=== PATIENT | female | born 1945 | race Caucasian/White ===

== ENCOUNTER 2017-02-22 15:05 | Inpatient (IN) ==
[2017-02-22] MEDS ORDERED: TYLENOL PO PRN (15:29)
[2017-02-22 16:46] VITALS: BMI 24.7
[2017-02-22] MEDS: LOPID PO SCH (17:01)
[2017-02-22] MEDS: NORCO 5-325 PO PRN ×2 (17:08→22:54)
[2017-02-22 17:39] LABS: BASOPHILS % (AUTO) 0.4 % (0.0-3.0); EOSINOPHILS # (AUTO) 0.1 K/ul (0.0-0.7); EOSINOPHILS % (AUTO) 1.2 % (0.0-7.0); HEMATOCRIT 27.7 % (37.0-47.0); HEMOGLOBIN 9.3 g/dl (12.0-16.0); IMMATURE GRANULOCYTE % (AUTO) 0.5 % (0.0-5.0); LYMPHOCYTES # (AUTO) 2.5 K/uL (0.60-3.4); LYMPHOCYTES % (AUTO) 22.6 (10.0-50.0); MEAN CORPUSCULAR HEMOGLOBIN 30.9 pg (27.0-31.0); MEAN CORPUSCULAR HGB CONC 33.6 (31.8-35.4); MONOCYTES # (AUTO) 0.7 K/uL (0.4-2.0); MONOCYTES % (AUTO) 6.3 (0-10); NEUTROPHILS # (AUTO) 7.6 K/ul (2.0-6.9); PLATELET COUNT 312 10^3/uL (140-440); RED BLOOD COUNT 3.01 10^6/ul (4.20-5.40); WHITE BLOOD COUNT 10.95 K/ul (4.6-10.2)
[2017-02-22 17:57] LABS: ALBUMIN 2.6 g/dL (3.4-5.0); ALBUMIN/GLOBULIN RATIO 0.6; ANION GAP 15.6; BILIRUBIN,TOTAL 0.26 mg/dL (0.00-1.20); BUN/CREATININE RATIO 30.68; CALCIUM 9.8 mg/dL (8.2-10.2); CREATININE 0.88 mg/dL (0.60-1.30); POTASSIUM 4.6 mmol/L (3.5-5.10); TOTAL PROTEIN 6.9 g/dL (5.8-8.1)
[2017-02-22] MEDS: DUONEB NEB SCH (19:45)
[2017-02-22] MEDS: COLACE PO SCH (20:50)
[2017-02-22] MEDS: LOPRESSOR PO SCH (20:50)
[2017-02-22] MEDS: NON-FORMULARY MEDICATION PO SCH ×22 (21:23)
[2017-02-22] MEDS ORDERED: KLONOPIN PO STA (21:37)
[2017-02-23 04:49] LABS: BASOPHILS # (AUTO) 0.1 K/uL (0-0.2); BASOPHILS % (AUTO) 0.6 % (0.0-3.0); EOSINOPHILS # (AUTO) 0.3 K/ul (0.0-0.7); EOSINOPHILS % (AUTO) 2.5 % (0.0-7.0); HEMATOCRIT 26.4 % (37.0-47.0); HEMOGLOBIN 8.7 g/dl (12.0-16.0); IMMATURE GRANULOCYTE % (AUTO) 1.2 % (0.0-5.0); LYMPHOCYTES # (AUTO) 2.3 K/uL (0.60-3.4); LYMPHOCYTES % (AUTO) 22.5 (10.0-50.0); MEAN CORPUSCULAR HEMOGLOBIN 30.6 pg (27.0-31.0); MONOCYTES # (AUTO) 0.9 K/uL (0.4-2.0); MONOCYTES % (AUTO) 8.7 (0-10); NEUTROPHILS # (AUTO) 6.6 K/ul (2.0-6.9); NEUTROPHILS % (AUTO) 64.5; PLATELET COUNT 307 10^3/uL (140-440); RED BLOOD COUNT 2.84 10^6/ul (4.20-5.40)
[2017-02-23 05:10] LABS: ALBUMIN 2.4 g/dL (3.4-5.0); ALBUMIN/GLOBULIN RATIO 0.62; ANION GAP 15.1; BILIRUBIN,TOTAL 0.23 mg/dL (0.00-1.20); BUN/CREATININE RATIO 31.76; CALCIUM 9.5 mg/dL (8.2-10.2); CREATININE 0.85 mg/dL (0.60-1.30); POTASSIUM 4.1 mmol/L (3.5-5.10); TOTAL PROTEIN 6.3 g/dL (5.8-8.1)
[2017-02-23] MEDS: DUONEB NEB SCH ×4 (05:27→20:44)
[2017-02-23] MEDS: LOPID PO SCH ×2 (06:28→16:53)
[2017-02-23] MEDS: SYNTHROID PO SCH (06:28)
[2017-02-23] MEDS: PROTONIX PO SCH (06:29)
[2017-02-23] MEDS ORDERED: SYNTHROID PO SCH (06:30)
[2017-02-23] MEDS: PLAVIX PO SCH (08:45)
[2017-02-23] MEDS: COLACE PO SCH ×2 (08:45→20:49)
[2017-02-23] MEDS: LOPRESSOR PO SCH ×2 (08:45→20:49)
[2017-02-23] MEDS: HYDROCHLOROTHIAZIDE PO SCH (08:46)
[2017-02-23] MEDS: DIOVAN PO SCH (08:46)
[2017-02-23] MEDS: NON-FORMULARY MEDICATION PO SCH ×44 (08:47→20:50)
[2017-02-23] MEDS ORDERED: KLONOPIN PO SCH (09:00)
[2017-02-23] MEDS ORDERED: NON-FORMULARY MEDICATION (Tiotropium Bromide [Spiriva Respimat] 4 GM) IH SCH (10:45)
--- NOTE | 2017-02-23 12:34 | US ---
EXAM: Bilateral carotid artery Doppler. History: Dizziness. Technique: Multiple sonographic images through the bilateral internal carotid arteries were obtaine d. Color duplex Doppler was used to interrogate vascular flow. Findings: The right ICA peak systolic velocity is within normal limits measuring 1.1 meters per second. The r ight ICA/cca PSV ratio is normal at 1.1. Yung scale images demonstrate mild to moderate plaque buil dup within the right internal carotid artery. The right vertebral artery is patent and demonstrates antegrade flow. The left ICA peak systolic velocity is moderately elevated measuring 1.7 meters per second. The lef t ICA/cca PSV ratio is upper limits of normal at 1.8. Yung scale images demonstrate moderate plaque buildup within the left internal carotid artery. The left vertebral artery is patent and demonstrat es antegrade flow. Impression: 1. Moderate, 50-69% hemodynamic stenosis within the left internal carotid artery. 2. No significant hemodynamic stenosis within the right internal carotid artery.
[2017-02-23] MEDS: SPIRIVA IH SCH (12:52)
[2017-02-23] MEDS: NORCO 5-325 PO PRN ×2 (12:53→23:07)
--- NOTE | 2017-02-23 13:24 | RS.PTINEVL ---
Subjective - Patient information Date of Evaluation: 02/23/17 Date of Arrival on Unit: 02/22/17 Admitted From:: Facility Transfer Usual Living Arrangement: Alone Home Environment: House, Stairs (few) (2 ) Medical History: Hypertension, COPD, Vascular Disease Surgical History: Knee Replacement (bilateral in 2011) Subjective Information/ Patient Comments:: Patient reports right foot is doing better since her procedure. 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 Right LE demonstrates slight swelling compared to the left LE. Range of Motion - ROM Right Upper Extremity AROM: WFL's Left Upper Extremity AROM: WFL's Right Lower Extremity AROM: WFL's Left Lower Extremity AROM: WFL's Muscle Strength - Muscle Strength Right Lower Extremity Strength: Mild Weakness Left Lower Extremity Strength: Mild Weakness Comments:: Demonstrates general weakness, but no functional deficits. LE strength bilateral hips and knees 4 to 4+/5. Right ankle at least 3+/4. Patient reports pain in the lower leg with MMT DF. Left ankle 4+/5. Sensation - Sensation Comments: Reports impaired sensation along right lateral/anterior thigh. Balance - Sitting Balance and Reactions Static Sitting Balance: Good Dynamic Sitting Balance: Good - Standing Balance and Reactions Static Standing Balance: Good Dynamic Standing Balance: Good (-) Functional Mobility - Bed Mobility Comments:: Patient presented sitting on side of bed. - Transfers Sit to Stand: CGA, 1 person assist, Tactile Cues Stand to Sit: CGA, 1 person assist, Verbal Cues, Tactile Cues Stand Pivot Transfers: CGA, 1 person assist, Verbal Cues, Tactile Cues - Safety Awareness Safety Awareness: Fair Ambulation - Ambulation Weight Bearing Status: FWB Assistive Device Used: Rolling Walker Distance: 150 feet Assistance needed with Ambulation: CGA, 1 person assist, Verbal Cues, Tactile Cues Ambulation Comments: Patient demonstrates good base of support. She walks with RW slightly farther than optimal distance from her.She demonstrates consistent foot clearance bilaterally. Ambulates in non-skid socks with RW with no loss of balance. Patient demonstrates slight SOA upon returning to her room. Factors Affecting Ambulation: Weakness (general), Limited Endurance Treatment time - Time with patient Total treatment time: 16 (mins) Assessment - Assessment Problem List:: Decreased level of function, Requires training/education, Decreased safety/Risk of falls, Weakness Rehab Potential: Good Further Therapy Indicated?: Yes Short Term Goals GOAL #1: Supine to sit with supvn and VC's. Goal to be met by: 02/25/17 GOAL #2: Sit to stand with supvn and VC's for safety. Goal to be met by: 02/25/17 GOAL #3: Amb. 150 feet with supervision of one with safe use of RW. 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 Goal to be met by: 03/01/17 GOAL #2: All transfers are independent with good safety. Goal to be met by: 03/01/17 GOAL #3: Pt will amb w/ RW, household distances w/ good safety, independently. Goal to be met by: 03/01/17 Plan Plan of Care: Therapeutic EX, Neuromuscular Re-Educ, Therapeutic Activity, Self- Care/Home Management Frequency of Treatment: 1-2 X day, as tolerated Duration of Treatment: 5-6 days Anticipated Discharge Destination: Home
[2017-02-23] MEDS: ULTRAM PO PRN ×2 (14:15→22:00)
[2017-02-23] MEDS ORDERED: DULCOLAX RC STA (14:16)
[2017-02-23] MEDS: NICODERM 21 MG TD SCH (14:30)
--- NOTE | 2017-02-23 15:52 | RS.OTINEVL ---
Subjective - Patient information Date of Evaluation: 02/23/17 Date of Arrival on Unit: 02/22/17 Admitted From:: Facility Transfer Usual Living Arrangement: With Others Living Arrangement Comments: Lives at home with her handicapped daughter. Home Environment: House, Stairs (few) (2 ) Medical History: Hypertension, COPD, Vascular Disease Medical History Comments:: Bilateral TKA, Femoral A. Endarterectomy, Tibialis Anterior A. Graft, Emphysema, HTN, Irregular heart beat. Surgical History: Knee Replacement (bilateral in 2011) Surgical History Comments:: B TKA, Femoral A. Endarterectomy, Tibialis Anterior A. Graft, Subjective Information/ Patient Comments:: I am walking with a walker now. I am wobbly. 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 Current Level of Function: Partially Dependent Current Equipment Used at Home: rolling walker and shower chair Pain Assessment - Pain Pain Score: 0 Interventions - Objective Patient Orientation: Person, Place, Time, Situation Current Interventions: IV's, Oxygen, Telemetry Observation: Pt is SOA with activity. Interventions - ROM Right Upper Extremity AROM: WFL's Left Upper Extremity AROM: WFL's - Strength Right Upper Extremity Strength: Mild Weakness Left Upper Extremity Strength: Mild Weakness - Sensation Right Upper Extremity Sensation: Intact/Normal Left Upper Extremity Sensation: Intact/Normal Balance - Sitting Balance Static Sitting Balance: Poor Dynamic Sitting Balance: Poor - Standing Balance Static Standing Balance: Fair Dynamic Standing Balance: Fair - Comments Balance Assessment Comments: Patient requires a RW for ambulation due to swurving. ADL Skills - Self Feeding Self Feeding: Independent - Grooming Grooming: Min Assist - Bathing Bathing UE: Independent Bathing LE: CGA - Dressing Dressing UE: Independent Dressing LE: CGA - Toilet Management Toileting Management: CGA Functional Mobility - Bed Mobility Rolling R/L: Independent Scooting: Independent Supine to Sit: Independent Sit to Supine: Independent - Transfers Sit to Stand: CGA Stand to Sit: CGA Stand Pivot Transfers: CGA Additional Treatment Performed - Additional units charged ADL: 15 - Time with patient Total treatment time: 20 Activities Patient Interests:: Watching Television Patient Education Patient Education: Education of diagnosis, Home Exercise Program, Home Safety, Education of Plan of Care Teaching Recipient: Patient Teaching Methods: Discussion Assessment Problem List:: Decreased level of function, Requires training/education, Decreased safety/Risk of falls, Weakness Rehab Potential: Good Further Therapy Indicated?: Yes Short Term Goals - Goals GOAL 1: Pt to increase standing activity to 15 minutes for sink level ADLS. Goal to be met by: 03/02/17 GOAL 2: Pt to increase activity tolerance to 20 minutes with rests PRN. Goal to be met by: 03/02/17 GOAL 3: Pt to increase BUE strength to 4/5 Goal to be met by: 03/02/17 [facility] Goals GOAL 1: Pt to increase standing activity time to 20 minutes with Rests PRN. Goal to be met by: 03/09/17 GOAL 2: Pt to increase activity time to 30 minutes with rests PRN. Goal to be met by: 03/09/17 GOAL 3: Pt to be independent with Home exercise program. Goal to be met by: 03/09/17
[2017-02-23] MEDS: KLONOPIN PO SCH (20:49)
[2017-02-24] MEDS: DUONEB NEB SCH ×4 (05:06→18:55)
[2017-02-24] MEDS: LOPID PO SCH ×2 (05:40→17:35)
[2017-02-24] MEDS: PROTONIX PO SCH (05:40)
[2017-02-24] MEDS: SYNTHROID PO SCH (05:41)
[2017-02-24] MEDS: DIOVAN PO SCH (08:17)
[2017-02-24] MEDS: COLACE PO SCH ×2 (08:17→20:49)
[2017-02-24] MEDS: HYDROCHLOROTHIAZIDE PO SCH (08:17)
[2017-02-24] MEDS: LOPRESSOR PO SCH ×2 (08:18→20:49)
[2017-02-24] MEDS: NORCO 5-325 PO PRN ×2 (08:19→15:10)
[2017-02-24] MEDS: PLAVIX PO SCH (08:19)
[2017-02-24] MEDS: ZINC-220 PO SCH ×2 (08:20→20:49)
[2017-02-24] MEDS: SPIRIVA IH SCH (08:20)
[2017-02-24] MEDS: NICODERM 21 MG TD SCH (08:22)
[2017-02-24] MEDS: NON-FORMULARY MEDICATION PO SCH ×44 (08:22→20:48)
[2017-02-24] MEDS: VITAMIN C PO SCH ×2 (08:28→20:49)
--- NOTE | 2017-02-24 09:01 | PN ---
DATE OF SERVICE: 02/23/17 ADMITTING NOTE SUBJECTIVE: The patient is a 72 year old white female admitted to swing bed with decline in her overall general status and decubitus ulcer and she underwent right femoral endarterectomy. The patient's condition has improved after taking the history of patient underwent long surgery, five hour, she is recovering very well. Incision on the right inguinal area and right tibial anterior aspect are progressing well with no evidence of infection. The decubitus on both heels practically have resolved. The coccygeal decubitus which is grade two is going to be seen by plastic surgeon tomorrow. REVIEW OF SYSTEMS: CONSTITUTIONAL: No night sweats. No fatigue, malaise, lethargy. No fever or chills. HEENT: Eyes: No visual changes. No eye pain. No eye discharge. ENT: No runny nose. No epistaxis. No sinus pain. No sore throat. No odynophagia. No congestion. RESPIRATORY: No cough, no congestion. No hemoptysis. CARDIOVASCULAR: No angina symptoms. No CHF symptoms. No atypical chest pain for CAD. No palpitations. No shortness of breath. GASTROINTESTINAL: No abdominal pain. No nausea or vomiting. No diarrhea or constipation. No hematemesis. No hematochezia. GENITOURINARY: No urgency. No frequency. No dysuria. No hematuria. No obstructive symptoms. No discharge. No pain. No significant abnormal bleeding. MUSCULOSKELETAL: No musculoskeletal pain; no joint swelling. NEUROLOGICAL: No headache. No neck pain. No syncope. No seizures. No dizziness. PSYCHIATRIC: Not anxious. No depression. No suicidal thoughts. No homicidal thoughts. SKIN: No rash. No lesions. No wounds. ENDOCRINE: No unexplained weight loss. No weight gain. HEMATOLOGIC/LYMPHATIC: No anemia. No purpura. No petechiae. No prolonged or excessive bleeding. No palpable lymph nodes. PHYSICAL EXAMINATION: GENERAL: The patient is oriented to time, place and person. VITAL SIGNS: Temperature 98, pulse 60, respiratory 15 and blood pressure 130/ 60. HEENT: Head normocephalic, atraumatic. Eyes: Extraocular muscles are intact. Pupils are equal, round and reactive to light and accommodation. Ears: No lesions. Nose appeared normal. Throat: No exudate or erythema. NECK: Supple. No JVD, no carotid bruit. No lymphadenopathy or thyromegaly. LUNGS: Decreased breath sounds but clear to auscultation. Percussion note normal. Chest symmetrical. HEART: S1, S2, no S3. No murmurs. No cyanosis or clubbing. No ascites. Pulses: Dorsalis pedis and posterior tibial pulses feeble bilaterally. Left carotid bruit noted. ABDOMEN: Soft. Nontender. Bowel sounds active. No CVA tenderness. No mass felt. EXTREMITIES: No edema. Full range of motion of all extremities, equal. NEUROLOGIC: No focal deficit. Cranial nerves II through XII are grossly intact. No headache, no double vision or headache. SKIN: Not dry. Intact. Turgor - normal. LYMPHATIC: No palpable lymph nodes/no lymphedema. MUSCULOSKELETAL: Normal joints with no swelling. Muscle tone is normal. LABS: hgb 8.7, hct 26 and WBC 10,000 normal differential. ASSESSMENT: 1. Right femoral endarterectomy 2. Decubitus ulcers 3. Anemia 4. Peripheral arterial disease PLAN: 1. Daily CBC and CMP 2. Will do the carotid scan 3. May need to transfuse the blood 4. The patient is going to follow up with the plastic surgeon and Dr. uBrgos as instructed 5. Nutritional status needs to be improved. 6. The patient needs to be ambulatory 7. Decubitus care discussed with the nursing staff 8. The patient had an EKG which showed sinus rhythm with PAC's, no acute changes noted. 9. The patient may need an echocardiogram to evaluate systolic murmur. The patient had a carotid scan done, the reports shows that she has 50-70% left carotid occlusive disease. CONDITION: Stable TIME SPENT: More than 30 minutes. Plan and coordination of the patient's care discussed in the presence of nurse. SONG
--- NOTE | 2017-02-24 09:44 | HP ---
DATE OF SERVICE: 02/23/17 REASON FOR HOSPITALIZATION: Swing bed after right femoral endarterectomy; also decubitus ulcers and decline in nutritional status. HISTORY OF PRESENT ILLNESS: 72-year-old white female, who has multiple medical problems, underwent long operation five hour with vascular surgeon in [facility], Dr. Burgos, right femoral endarterectomy. Also had tibial artery endarterectomy also. REVIEW OF SYSTEMS: CONSTITUTIONAL: Weakness and fatigue. HEENT: Eyes: No visual changes. No eye pain. No eye discharge. ENT: No runny nose. No epistaxis. No sinus pain. No sore throat. No odynophagia. No ear pain. No congestion. RESPIRATORY: No cough, no congestion. No hemoptysis. CARDIOVASCULAR: No chest pain, no PND, no orthopnea. GASTROINTESTINAL: Appetite improving but not that good. No abdominal pain. No nausea or vomiting. No diarrhea or constipation. No hematemesis. No hematochezia. GENITOURINARY: No urgency. No frequency. No dysuria. No hematuria. No obstructive symptoms. No discharge. No pain. No significant abnormal bleeding. MUSCULOSKELETAL: Leg pains at times but not as much as what she had before. NEUROLOGICAL: No headache. No neck pain. No syncope. No seizures. No dizziness. PSYCHIATRIC: Not anxious. No depression. No suicidal thoughts. No homicidal thoughts. SKIN: No rash. ENDOCRINE: No unexplained weight loss. No weight gain. HEMATOLOGIC/LYMPHATIC: No anemia. No purpura. No petechiae. No prolonged or excessive bleeding. No palpable lymph nodes. PERSONAL/FAMILY/SOCIAL HISTORY: The patient is . The has dementia. The patient has two daughters that takes care of her, Yuliet Smyth and Idalia Lee. PAST MEDICAL/SURGICAL PROBLEMS: History of osteoarthritis Chronic lung disease Generalized anxiety syndrome Peripheral arterial disease Hypothyroidism Hypertension Dyslipidemia Anemia MEDICATIONS: Tylenol/Hydrocodone 5q.6hourly Duoneb q.i.d. p.r.n. Klonopin 0.5 at bedtime Klonopin 0.5 p.r.n. once a day extra Plavix 75 mg p.o. daily Colace 100 mg p.o. twice a day Lopid 600 mg p.o. twice a day Hydrochlorothiazide 25 mg p.o. daily Synthroid 150 mcg p.o. daily Metoprolol 12.5 mg twice a day Protonix 40 mg p.o. daily Tramadol 50 mg p.o. q.8hr p.r.n. Diovan 160 mg p.o. daily ALLERGIES: CIPROFLOXACIN PHYSICAL EXAMINATION: GENERAL: The patient is oriented to time, place and person. VITAL SIGNS: Temperature 98, pulse 68, respiratory rate 18, BP 130/60, pulse ox 96%. HEENT: Head normocephalic, atraumatic. Eyes: Extraocular muscles are intact. Pupils are equal, round and reactive to light and accommodation. Ears: No lesions. Nose appeared normal. Throat: No exudate or erythema. NECK: Supple. No JVP; left-sided carotid bruit; right carotid artery normal. No lymphadenopathy or thyromegaly. LUNGS: Clear to auscultation. Percussion note normal. Chest symmetrical. HEART: S1, S2 normal. Grade I to II/ systolic murmur. No cyanosis or clubbing. No ascites. Pulses: Dorsalis pedis and posterior tibial pulses +1 to +2 both sides. ABDOMEN: Soft. Nontender. Bowel sounds active. No CVA tenderness. No mass felt. EXTREMITIES: The patient has a bandage over right inguinal area from femoral surgery. Also, has trap on the right tibial area anteriorly, she had a surgery. The patient has decubitus on coccygeal area. She is going to be evaluated by Dr. Juju Fisher on 02/24/17. The patient has two other Grade I decubitus which have done very well, left and right heel, practically healed up. Incision on right femoral area clean with no evidence of Full range of motion of all extremities, equal. NEUROLOGIC: No focal deficit. Cranial nerves II through XII are grossly intact. No headache, no double vision or headache. SKIN: Not dry. Intact. Turgor - normal. LYMPHATIC: No palpable lymph nodes/no lymphedema. MUSCULOSKELETAL: Normal joints with no swelling. Muscle tone is normal. LABS: CMP - creatinine 0.8, BUN 27, potassium 4.1, normal liver profile. Hemoglobin 8.7, hematocrit 26, WBC 10,000, normal differential - was collected on 02/23. ASSESSMENT: 1. STATUS POST RIGHT FEMORAL ENDARTERECTOMY AND TIBIAL ARTERY ENDARTERECTOMY ON RIGHT SIDE. 2. DECUBITUS ULCERS, COCCYGEAL AREA AND ALSO BOTH HEELS. 3. HYPERTENSION. 4. PERIPHERAL ARTERIAL DISEASE. 5. ANXIETY SYNDROME. 6. ANEMIA. 7. HYPOTHYROIDISM. 8. GENERAL DECLINE IN HEALTH STATUS WITH MEDICAL PROBLEMS AND LEFT CAROTID BRUIT. PLAN: 1. Daily CBC, CMP 2. Will do T4, TSH 3. EKG 4. Telemetry 5. The patient is to be followed by Dr. Burgos on 02/28/17 that is a vascular surgeon and Dr. Juju Fisher who is a plastic surgery 02/24/17. TIME SPENT: More than 70 minutes. SONG
--- NOTE | 2017-02-24 10:23 | PCM.PROG ---
Attending Provider: ATTENDING PROVIDER: Dr. BRENDEN CARTER DATE OF SERVICE: 02/24/17 SUBJECTIVE: This 72 year old WHITE/ F was hospitalized 02/23/17. The patient is hospitalized in swing after right femoral endarterectomy. The patient is recovering well. We are paying close attention to nutritional status and decubitus ulcer care in coccygeal area 1.5 irregular viejas with Grade 1 and Grade 2. The patient will be seen by plastic surgeon today at [place], Dr. Juju Fisher. The patient had a carotid scan, which showed left internal carotid artery 50 to 70%. The patient's hemoglobin and hematocrit are stable. REVIEW OF SYSTEMS: CONSTITUTIONAL: No night sweats. No fatigue, malaise, lethargy. No fever or chills. HEENT: Eyes: No visual changes. No eye pain. No eye discharge. ENT: No runny nose. No epistaxis. No sinus pain. No odynophagia. No congestion. RESPIRATORY: No cough, no congestion. No hemoptysis. CARDIOVASCULAR: No angina symptoms. No CHF symptoms. No atypical chest pain for CAD. No palpitations. No shortness of breath. GASTROINTESTINAL: No abdominal pain. No nausea or vomiting. No diarrhea or constipation. No hematemesis. No hematochezia. GENITOURINARY: No urgency. No frequency. No dysuria. No hematuria. No obstructive symptoms. No discharge. No pain. No significant abnormal bleeding. MUSCULOSKELETAL: No musculoskeletal pain; no joint swelling. NEUROLOGICAL: Awake, alert, oriented to time, place and person. No headache. No neck pain. No syncope. No seizures. No dizziness. PSYCHIATRIC: Not anxious. No depression. No suicidal thoughts. No homicidal thoughts. SKIN: No rash. ENDOCRINE: No unexplained weight loss. No weight gain. HEMATOLOGIC/LYMPHATIC: No anemia. No purpura. No petechiae. No prolonged or excessive bleeding. No palpable lymph nodes. PHYSICAL EXAMINATION: GENERAL: The patient is awake, alert and oriented, sitting on the side of the bed in no distress. VITAL SIGNS: Temperature 98.5 F, Pulse 62, Respiratory Rate 18, BP 122/58, Pulse Ox 100% HEENT: Head normocephalic, atraumatic. Eyes: Extraocular muscles are intact. Pupils are equal, round and reactive to light and accommodation. Ears: No lesions. Nose appeared normal. Throat: No exudate or erythema. NECK: Supple. No JVD, no carotid bruit. No lymphadenopathy or thyromegaly. LUNGS: Clear to auscultation. Percussion note normal. Chest symmetrical. HEART: S1, S2, no S3. No murmurs. No cyanosis or clubbing. No ascites. Pulses: Dorsalis pedis and posterior tibial pulses +1 to +2 both sides. ABDOMEN: Soft. Non-tender. Bowel sounds active. No CVA tenderness. No mass felt. Decubitus ulcer noted; no evidence of infection, no skin break Grade 1, in the center Grade 2 EXTREMITIES: No edema. Full range of motion of all extremities, equal. Bandage over right inguinal area from femoral surgery. NEUROLOGIC: No focal deficit. Cranial nerves II through XII are grossly intact. No headache, no double vision or headache. SKIN: Not dry. Intact. Turgor-normal. LYMPHATIC: No palpable lymph nodes/no lymphedema. MUSCULOSKELETAL: Normal joints with no swelling. Muscle tone is normal. LAB REVIEW: 02/23/17 04:46 02/23/17 04:46 ASSESSMENT: 1. Right femoral artery endarterectomy 2. Decubitus ulcer coccygeal area 3. Carotid stenosis 4. Anemia 5. Peripheral arterial disease PLAN: 1. Followup with Dr. Fisher, Plastic Surgeon 2. Followup with vascular surgery 3. Will monitor CBC, CMP 4. Up and about 5. Will focus on nutritional status 6. Lipid profile 7. T4 and TSH 8. Daily CBC and CMP Plan and coordination of the patient's care discussed in the presence of Electronic Court Recorder and nurse. CONDITION: Stable SCRIBED BY: KEZIA BEAUCHAMP Extractor Puller scribed while in presence of service performed by Dr. BRENDEN CARTER on 02/24/17 ([id number])
[2017-02-24 15:38] LABS: BASOPHILS # (AUTO) 0.1 K/uL (0-0.2); BASOPHILS % (AUTO) 0.5 % (0.0-3.0); EOSINOPHILS # (AUTO) 0.3 K/ul (0.0-0.7); EOSINOPHILS % (AUTO) 2.4 % (0.0-7.0); HEMOGLOBIN 9.2 g/dl (12.0-16.0); IMMATURE GRANULOCYTE % (AUTO) 0.8 % (0.0-5.0); LYMPHOCYTES # (AUTO) 2.3 K/uL (0.60-3.4); LYMPHOCYTES % (AUTO) 20.9 (10.0-50.0); MEAN CORPUSCULAR HEMOGLOBIN 31.1 pg (27.0-31.0); MEAN CORPUSCULAR HGB CONC 32.9 (31.8-35.4); MEAN CORPUSCULAR VOLUME 94.6 fl (81.0-99.0); MONOCYTES # (AUTO) 0.9 K/uL (0.4-2.0); MONOCYTES % (AUTO) 8.7 (0-10); NEUTROPHILS # (AUTO) 7.2 K/ul (2.0-6.9); NEUTROPHILS % (AUTO) 66.7; PLATELET COUNT 387 10^3/uL (140-440); RED BLOOD COUNT 2.96 10^6/ul (4.20-5.40); WHITE BLOOD COUNT 10.79 K/ul (4.6-10.2)
[2017-02-24] MEDS: SANTYL TP SCH (16:09)
[2017-02-24 16:24] LABS: ALBUMIN 2.6 g/dL (3.4-5.0); ALBUMIN/GLOBULIN RATIO 0.63; ANION GAP 15.3; BILIRUBIN,TOTAL 0.22 mg/dL (0.00-1.20); BUN/CREATININE RATIO 27.4; CALCIUM 9.3 mg/dL (8.2-10.2); CHOL/HDL RATIO 7.1 (4.5-5.5); CREATININE 1.35 mg/dL (0.60-1.30); POTASSIUM 4.3 mmol/L (3.5-5.10); TOTAL PROTEIN 6.7 g/dL (5.8-8.1)
[2017-02-24] MEDS: KLONOPIN PO SCH (20:49)
[2017-02-25] MEDS: NORCO 5-325 PO PRN ×3 (02:46→17:41)
[2017-02-25 05:04] LABS: BASOPHILS # (AUTO) 0.1 K/uL (0-0.2); BASOPHILS % (AUTO) 0.4 % (0.0-3.0); EOSINOPHILS # (AUTO) 0.3 K/ul (0.0-0.7); EOSINOPHILS % (AUTO) 2.4 % (0.0-7.0); HEMOGLOBIN 8.8 g/dl (12.0-16.0); IMMATURE GRANULOCYTE % (AUTO) 0.7 % (0.0-5.0); LYMPHOCYTES % (AUTO) 16.5 (10.0-50.0); MEAN CORPUSCULAR HEMOGLOBIN 30.6 pg (27.0-31.0); MEAN CORPUSCULAR HGB CONC 32.6 (31.8-35.4); MEAN CORPUSCULAR VOLUME 93.8 fl (81.0-99.0); MONOCYTES # (AUTO) 1.1 K/uL (0.4-2.0); MONOCYTES % (AUTO) 9.2 (0-10); NEUTROPHILS # (AUTO) 8.4 K/ul (2.0-6.9); NEUTROPHILS % (AUTO) 70.8; PLATELET COUNT 389 10^3/uL (140-440); RED BLOOD COUNT 2.88 10^6/ul (4.20-5.40); WHITE BLOOD COUNT 11.88 K/ul (4.6-10.2)
[2017-02-25] MEDS: DUONEB NEB SCH ×4 (05:16→19:00)
[2017-02-25 05:30] LABS: ALBUMIN 2.6 g/dL (3.4-5.0); ALBUMIN/GLOBULIN RATIO 0.68; ANION GAP 14.3; BILIRUBIN,TOTAL 0.25 mg/dL (0.00-1.20); BUN/CREATININE RATIO 32.69; CALCIUM 9.3 mg/dL (8.2-10.2); CREATININE 1.04 mg/dL (0.60-1.30); POTASSIUM 4.3 mmol/L (3.5-5.10); TOTAL PROTEIN 6.4 g/dL (5.8-8.1)
[2017-02-25] MEDS: LOPID PO SCH (05:40)
[2017-02-25] MEDS: SYNTHROID PO SCH (05:40)
[2017-02-25] MEDS: PROTONIX PO SCH (05:40)
--- NOTE | 2017-02-25 09:23 | PCM.PROG ---
Attending Provider: ATTENDING PROVIDER: Dr. BRENDEN CARTER DATE OF SERVICE: 02/25/17 SUBJECTIVE: This 72 year old WHITE/ F was hospitalized 02/23/17. The patient is hospitalized with right femoral endarterectomy. She was seen by the plastic surgeon yesterday for the decubitus ulcer on the back, treated with Santyl and Duoderm Patch. No procedure planned and will be seen back in one week by the plastic surgeon in [place]. REVIEW OF SYSTEMS: CONSTITUTIONAL: No night sweats. No fatigue, malaise, lethargy. No fever or chills. HEENT: Eyes: No visual changes. No eye pain. No eye discharge. ENT: No runny nose. No epistaxis. No sinus pain. No odynophagia. No congestion. RESPIRATORY: No cough, no congestion. No hemoptysis. CARDIOVASCULAR: No angina symptoms. No CHF symptoms. No atypical chest pain for CAD. No palpitations. No shortness of breath. GASTROINTESTINAL: No abdominal pain. No nausea or vomiting. No diarrhea or constipation. No hematemesis. No hematochezia. GENITOURINARY: No urgency. No frequency. No dysuria. No hematuria. No obstructive symptoms. No discharge. No pain. No significant abnormal bleeding. MUSCULOSKELETAL: No musculoskeletal pain; no joint swelling. NEUROLOGICAL: Awake, alert, oriented to time, place and person. No headache. No neck pain. No syncope. No seizures. No dizziness. PSYCHIATRIC: Not anxious. No depression. No suicidal thoughts. No homicidal thoughts. SKIN: No rash. No lesions. No wounds. ENDOCRINE: No unexplained weight loss. No weight gain. HEMATOLOGIC/LYMPHATIC: Anemia. No purpura. No petechiae. No prolonged or excessive bleeding. No palpable lymph nodes. PHYSICAL EXAMINATION: GENERAL: The patient is awake, alert and oriented, lying/sitting in bed in no distress. VITAL SIGNS: Temperature 97.6 F, Pulse 68, Respiratory Rate 16, BP 123/63, Pulse Ox 99% HEENT: Head normocephalic, atraumatic. Eyes: Extraocular muscles are intact. Pupils are equal, round and reactive to light and accommodation. Ears: No lesions. Nose appeared normal. Throat: No exudate or erythema. NECK: Supple. No JVD, no carotid bruit. No lymphadenopathy or thyromegaly. LUNGS: Clear to auscultation. Percussion note normal. Chest symmetrical. HEART: S1, S2, no S3. No murmurs. No cyanosis or clubbing. No ascites. Pulses: Dorsalis pedis and posterior tibial pulses +1 to +2 both sides. ABDOMEN: Soft. Non-tender. Bowel sounds active. No CVA tenderness. No mass felt. EXTREMITIES: No edema. Full range of motion of all extremities, equal. NEUROLOGIC: No focal deficit. Cranial nerves II through XII are grossly intact. No headache, no double vision or headache. SKIN: Not dry. Intact. Turgor-normal. LYMPHATIC: No palpable lymph nodes/no lymphedema. MUSCULOSKELETAL: Normal joints with no swelling. Muscle tone is normal. LAB REVIEW: 02/25/17 04:45 02/25/17 04:45 02/25/17 04:45: WBC 11.88 H, RBC 2.88 L, Hgb 8.8 L, Hct 27.0 L, MCV 93.8, MCH 30.6, MCHC 32.6, RDW Coeff of Bee 13.8, Plt Count 389, Immature Gran % (Auto) 0.7, Neut % (Auto) 70.8, Lymph % (Auto) 16.5, [place] % (Auto) 9.2, Eos % (Auto) 2.4, Baso % (Auto) 0.4, Immature Gran # (Auto) 0.1, Neut # 8.4 H, Lymph # 2.0, [place] # 1.1, Eos # 0.3, Baso # 0.1, Sodium 138, Potassium 4.3, Chloride 105, Carbon Dioxide 23, Anion Gap 14.3, BUN 34 H, Creatinine 1.04, Estimated GFR ( MDRD) 52.00, BUN/Creatinine Ratio 32.69, Glucose 116 H, Calcium 9.3, Total Bilirubin 0.25, AST 14 L, ALT 22, Alkaline Phosphatase 83, Total Protein 6.4, Albumin 2.6 L, Globulin 3.8, Albumin/Globulin Ratio 0.68 02/24/17 15:30: WBC 10.79 H, RBC 2.96 L, Hgb 9.2 L, Hct 28.0 L, MCV 94.6, MCH 31.1 H, MCHC 32.9, RDW Coeff of Bee 13.9, Plt Count 387, Immature Gran % (Auto) 0.8, Neut % (Auto) 66.7, Lymph % (Auto) 20.9, [place] % (Auto) 8.7, Eos % (Auto) 2.4, Baso % (Auto) 0.5, Immature Gran # (Auto) 0.1, Neut # 7.2 H, Lymph # 2.3, [place] # 0.9, Eos # 0.3, Baso # 0.1, Sodium 137, Potassium 4.3, Chloride 102, Carbon Dioxide 24, Anion Gap 15.3, BUN 37 H, Creatinine 1.35 H D, Estimated GFR (MDRD) 38.00, BUN/Creatinine Ratio 27.40, Glucose 122 H, Calcium 9.3, Total Bilirubin 0.22, AST 14 L, ALT 26, Alkaline Phosphatase 85, Total Protein 6.7, Albumin 2.6 L, Globulin 4.1, Albumin/Globulin Ratio 0.63, Triglycerides 276 H, Cholesterol 235 H, LDL Cholesterol, Calc 147, VLDL Cholesterol 55 H, HDL Cholesterol 33 L, Cholesterol/HDL Ratio 7.1 H, TSH 1.951, Free T4 0.89 ASSESSMENT: 1. Right femoral artery endarterectomy, recovering well 2. Decubitus ulcer coccygeal area being taken care of with plan in place 3. Anemia, will give one unit of PRBCs 4. Hypertension 5. Left carotid bruit PLAN: 1. For anemia, will give one unit of PRBCs today. 2. Continue Santyl one application daily TP 3. Fenofibrate 160 mg p.o. daily 4. D/C Lopid 5. H & H and INR post transfusion 6. Lipitor 40 mg p.o. bedtime 7. Continue other medications Plan and coordination of the patient's care discussed in the presence of [employer] Professional and nurse. CONDITION: Stable SCRIBED BY: KEZIA BEAUCHAMP, Customer Care Associate scribed while in presence of service performed by Dr. BRENDEN CARTER on 02/25/17 ([id number])
[2017-02-25] MEDS: NON-FORMULARY MEDICATION PO SCH ×44 (09:47→20:27)
[2017-02-25] MEDS: SPIRIVA IH SCH (09:47)
[2017-02-25] MEDS: TRIGLIDE PO SCH (09:48)
[2017-02-25] MEDS: VITAMIN C PO SCH ×2 (09:49→20:27)
[2017-02-25] MEDS: DIOVAN PO SCH (09:49)
[2017-02-25] MEDS: HYDROCHLOROTHIAZIDE PO SCH (09:49)
[2017-02-25] MEDS: ZINC-220 PO SCH ×2 (09:49→20:27)
[2017-02-25] MEDS: PLAVIX PO SCH (09:49)
[2017-02-25] MEDS: COLACE PO SCH ×2 (09:49→20:27)
[2017-02-25] MEDS: NICODERM 21 MG TD SCH (09:51)
[2017-02-25] MEDS: LOPRESSOR PO SCH ×2 (09:51→20:26)
[2017-02-25] MEDS: SANTYL TP SCH (09:54)
[2017-02-25] MEDS: ULTRAM PO PRN ×2 (12:25→20:36)
[2017-02-25 19:12] LABS: HEMATOCRIT 30.1 % (37.0-47.0); HEMOGLOBIN 9.9 g/dl (12.0-16.0)
[2017-02-25] MEDS: LIPITOR PO SCH (20:26)
[2017-02-25] MEDS: KLONOPIN PO SCH (20:27)
[2017-02-26 05:19] LABS: BASOPHILS # (AUTO) 0.1 K/uL (0-0.2); BASOPHILS % (AUTO) 0.5 % (0.0-3.0); EOSINOPHILS # (AUTO) 0.3 K/ul (0.0-0.7); EOSINOPHILS % (AUTO) 2.4 % (0.0-7.0); HEMATOCRIT 32.7 % (37.0-47.0); HEMOGLOBIN 10.6 g/dl (12.0-16.0); IMMATURE GRANULOCYTE % (AUTO) 1.1 % (0.0-5.0); LYMPHOCYTES # (AUTO) 2.1 K/uL (0.60-3.4); LYMPHOCYTES % (AUTO) 20.1 (10.0-50.0); MEAN CORPUSCULAR HEMOGLOBIN 30.1 pg (27.0-31.0); MEAN CORPUSCULAR HGB CONC 32.4 (31.8-35.4); MEAN CORPUSCULAR VOLUME 92.9 fl (81.0-99.0); MONOCYTES # (AUTO) 1.1 K/uL (0.4-2.0); MONOCYTES % (AUTO) 10.2 (0-10); NEUTROPHILS # (AUTO) 6.8 K/ul (2.0-6.9); NEUTROPHILS % (AUTO) 65.7; PLATELET COUNT 379 10^3/uL (140-440); RED BLOOD COUNT 3.52 10^6/ul (4.20-5.40); WHITE BLOOD COUNT 10.35 K/ul (4.6-10.2)
[2017-02-26] MEDS: DUONEB NEB SCH ×4 (05:23→20:04)
[2017-02-26] MEDS: SYNTHROID PO SCH (05:38)
[2017-02-26] MEDS: PROTONIX PO SCH (05:38)
[2017-02-26 06:53] LABS: ANION GAP 11.4; BILIRUBIN,TOTAL 0.4 mg/dL (0.00-1.20); BUN/CREATININE RATIO 35.55; CALCIUM 9.3 mg/dL (8.2-10.2); CREATININE 0.9 mg/dL (0.60-1.30); POTASSIUM 4.4 mmol/L (3.5-5.10)
[2017-02-26 06:54] LABS: ALBUMIN 3.5 g/dL (3.4-5.0); ALBUMIN/GLOBULIN RATIO 1.09; TOTAL PROTEIN 6.7 g/dL (5.8-8.1)
[2017-02-26] MEDS: ZINC-220 PO SCH ×2 (08:57→20:06)
[2017-02-26] MEDS: PLAVIX PO SCH (08:57)
[2017-02-26] MEDS: SPIRIVA IH SCH (08:57)
[2017-02-26] MEDS: SANTYL TP SCH (08:57)
[2017-02-26] MEDS: VITAMIN C PO SCH ×2 (08:57→20:06)
[2017-02-26] MEDS: COLACE PO SCH ×2 (08:58→20:05)
[2017-02-26] MEDS: DIOVAN PO SCH (08:58)
[2017-02-26] MEDS: LOPRESSOR PO SCH ×2 (08:58→20:06)
[2017-02-26] MEDS: NICODERM 21 MG TD SCH (08:58)
[2017-02-26] MEDS: NON-FORMULARY MEDICATION PO SCH ×44 (08:58→20:07)
[2017-02-26] MEDS: HYDROCHLOROTHIAZIDE PO SCH (08:58)
[2017-02-26] MEDS: NORCO 5-325 PO PRN ×2 (09:02→19:31)
[2017-02-26] MEDS: TRIGLIDE PO SCH (09:06)
[2017-02-26] MEDS: ULTRAM PO PRN (12:36)
[2017-02-26] MEDS: KLONOPIN PO SCH (20:06)
[2017-02-26] MEDS: LIPITOR PO SCH (20:06)
[2017-02-27] MEDS: NORCO 5-325 PO PRN ×3 (04:17→21:04)
[2017-02-27 05:15] LABS: BASOPHILS # (AUTO) 0.1 K/uL (0-0.2); BASOPHILS % (AUTO) 0.4 % (0.0-3.0); EOSINOPHILS # (AUTO) 0.3 K/ul (0.0-0.7); EOSINOPHILS % (AUTO) 2.4 % (0.0-7.0); HEMATOCRIT 30.6 % (37.0-47.0); HEMOGLOBIN 10.2 g/dl (12.0-16.0); IMMATURE GRANULOCYTE % (AUTO) 0.9 % (0.0-5.0); LYMPHOCYTES # (AUTO) 2.3 K/uL (0.60-3.4); LYMPHOCYTES % (AUTO) 18.8 (10.0-50.0); MEAN CORPUSCULAR HGB CONC 33.3 (31.8-35.4); MONOCYTES # (AUTO) 1.2 K/uL (0.4-2.0); MONOCYTES % (AUTO) 9.5 (0-10); NEUTROPHILS # (AUTO) 8.3 K/ul (2.0-6.9); PLATELET COUNT 399 10^3/uL (140-440); RED BLOOD COUNT 3.29 10^6/ul (4.20-5.40); WHITE BLOOD COUNT 12.15 K/ul (4.6-10.2)
[2017-02-27] MEDS: DUONEB NEB SCH ×4 (05:23→20:17)
[2017-02-27] MEDS: SYNTHROID PO SCH (05:42)
[2017-02-27] MEDS: PROTONIX PO SCH (05:42)
[2017-02-27 05:44] LABS: ALBUMIN 2.7 g/dL (3.4-5.0); ALBUMIN/GLOBULIN RATIO 0.75; ANION GAP 13.1; BILIRUBIN,TOTAL 0.26 mg/dL (0.00-1.20); BUN/CREATININE RATIO 37.5; CALCIUM 9.1 mg/dL (8.2-10.2); CREATININE 1.04 mg/dL (0.60-1.30); POTASSIUM 4.1 mmol/L (3.5-5.10); TOTAL PROTEIN 6.3 g/dL (5.8-8.1)
[2017-02-27] MEDS: SPIRIVA IH SCH (08:12)
[2017-02-27] MEDS: COLACE PO SCH ×2 (08:13→21:04)
[2017-02-27] MEDS: NON-FORMULARY MEDICATION PO SCH ×44 (08:13→21:06)
[2017-02-27] MEDS: NICODERM 21 MG TD SCH (08:13)
[2017-02-27] MEDS: PLAVIX PO SCH (08:14)
[2017-02-27] MEDS: DIOVAN PO SCH (08:14)
[2017-02-27] MEDS: LOPRESSOR PO SCH ×2 (08:14→21:05)
[2017-02-27] MEDS: HYDROCHLOROTHIAZIDE PO SCH (08:14)
[2017-02-27] MEDS: TRIGLIDE PO SCH (08:14)
[2017-02-27] MEDS: VITAMIN C PO SCH ×2 (08:14→21:05)
[2017-02-27] MEDS: ZINC-220 PO SCH ×2 (08:15→21:05)
[2017-02-27] MEDS: SANTYL TP SCH (08:19)
[2017-02-27] MEDS: LIPITOR PO SCH (21:04)
[2017-02-27] MEDS: KLONOPIN PO SCH (21:04)
[2017-02-28 04:28] LABS: BASOPHILS # (AUTO) 0.1 K/uL (0-0.2); BASOPHILS % (AUTO) 0.5 % (0.0-3.0); EOSINOPHILS # (AUTO) 0.3 K/ul (0.0-0.7); HEMATOCRIT 31.8 % (37.0-47.0); HEMOGLOBIN 10.4 g/dl (12.0-16.0); IMMATURE GRANULOCYTE % (AUTO) 1.3 % (0.0-5.0); LYMPHOCYTES # (AUTO) 2.4 K/uL (0.60-3.4); LYMPHOCYTES % (AUTO) 23.7 (10.0-50.0); MEAN CORPUSCULAR HEMOGLOBIN 30.4 pg (27.0-31.0); MEAN CORPUSCULAR HGB CONC 32.7 (31.8-35.4); MONOCYTES % (AUTO) 9.9 (0-10); NEUTROPHILS # (AUTO) 6.3 K/ul (2.0-6.9); NEUTROPHILS % (AUTO) 61.6; PLATELET COUNT 397 10^3/uL (140-440); RED BLOOD COUNT 3.42 10^6/ul (4.20-5.40); WHITE BLOOD COUNT 10.21 K/ul (4.6-10.2)
[2017-02-28 04:45] LABS: ALBUMIN 2.8 g/dL (3.4-5.0); ALBUMIN/GLOBULIN RATIO 0.76; ANION GAP 13.5; BILIRUBIN,TOTAL 0.22 mg/dL (0.00-1.20); BUN/CREATININE RATIO 41.66; CALCIUM 9.4 mg/dL (8.2-10.2); CREATININE 0.96 mg/dL (0.60-1.30); POTASSIUM 4.5 mmol/L (3.5-5.10); TOTAL PROTEIN 6.5 g/dL (5.8-8.1)
[2017-02-28] MEDS: DUONEB NEB SCH ×2 (05:04→10:14)
[2017-02-28 05:24] VITALS: BP 127/62; TEMP 98
[2017-02-28] MEDS: PROTONIX PO SCH (05:39)
[2017-02-28] MEDS: SYNTHROID PO SCH (05:39)
[2017-02-28] MEDS: NORCO 5-325 PO PRN ×2 (06:44→13:53)
[2017-02-28] MEDS: COLACE PO SCH (09:23)
[2017-02-28] MEDS: PLAVIX PO SCH (09:23)
[2017-02-28] MEDS: TRIGLIDE PO SCH (09:23)
[2017-02-28] MEDS: DIOVAN PO SCH (09:23)
[2017-02-28] MEDS: VITAMIN C PO SCH (09:23)
[2017-02-28] MEDS: HYDROCHLOROTHIAZIDE PO SCH (09:24)
[2017-02-28] MEDS: ZINC-220 PO SCH (09:24)
[2017-02-28] MEDS: LOPRESSOR PO SCH (09:24)
[2017-02-28] MEDS: NICODERM 21 MG TD SCH (09:24)
[2017-02-28] MEDS: SANTYL TP SCH (09:25)
[2017-02-28] MEDS: SPIRIVA IH SCH (09:25)
[2017-02-28] MEDS: NON-FORMULARY MEDICATION PO SCH ×22 (09:25)
--- NOTE | 2017-02-28 13:00 | CM.DICTOOL ---
ADMISSION: 02/23/17 08:41 DISCHARGE: 02/28/17 DATE OF SERVICE: 02/28/17 FINAL DIAGNOSIS GAIT DISTURBANCE RIGHT FEMORAL ENDARTERECTOMY BY DR. HANSEN@[facility] DECUBITUS ULCERS, COCCYX AND BOTH HEELS (PRESENT ON ADMISSION) ANEMIA (RECEIVED ONE UNIT PRBC'S 02/25/17) CAROTID OCCLUSIVE DISEASE (MODERATE, LEFT ICA-CAROTID STUDIES 02/23/17) PERIPHERAL ARTERIAL DISEASE HYPERTENSION DYSLIPIDEMIA COPD (CURRENT SMOKER) HYPOTHYROIDISM HISTORY OF DIVERTICULITIS GERD FIBROMYALGIA S/P BILATERAL KNEE ARTHROPLASTY APPENDECTOMY CHOLECYSTECTOMY HYSTERECTOMY LAST VITALS Temp Pulse Resp BP Pulse Ox 98.0 F 67 16 127/62 99 02/28/17 05:23 02/28/17 05:23 02/28/17 05:23 02/28/17 05:23 02/28/17 05:23 ACTIVE MEDICATIONS Acetaminophen (Tylenol) 650 mg PO Q4H PRN PRN Reason: Mild Pain Acetaminophen/Hydrocodone Bitart ([place] 5-325) 1 tab PO Q6HR PRN PRN Reason: Severe Pain Last Admin: 02/28/17 06:44 Dose: 1 tab Albuterol/Ipratropium (Duoneb) 1 vial NEB RTQID [facility] Last Admin: 02/28/17 10:14 Dose: 1 vial Ascorbic Acid (Vitamin C) 500 mg PO BID [facility] Last Admin: 02/28/17 09:23 Dose: 500 mg Atorvastatin Calcium (Lipitor) 40 mg PO BEDTIME [facility] ([facility]) Last Admin: 02/27/17 21:04 Dose: 40 mg Clonazepam (Klonopin) 0.5 mg PO BEDTIME [facility] Last Admin: 02/27/17 21:04 Dose: 0.5 mg Clopidogrel Bisulfate (Plavix) 75 mg PO DAILY [facility] Last Admin: 02/28/17 09:23 Dose: 75 mg Collagenase (Santyl) 1 applic TP DAILY [facility] ([facility]) Last Admin: 02/28/17 09:25 Dose: 1 applic Docusate Sodium (Colace) 100 mg PO BID [facility] Last Admin: 02/28/17 09:23 Dose: 100 mg Fenofibrate (Triglide) 160 mg PO DAILY [facility] ([facility]) Last Admin: 02/28/17 09:23 Dose: 160 mg Lansoprazole 30 MG PO DAILY Levothyroxine Sodium (Synthroid) 150 mcg PO QDAC [facility] Last Admin: 02/28/17 05:39 Dose: 150 mcg Metoprolol Tartrate (Lopressor) 12.5 mg PO BID [facility] Last Admin: 02/28/17 09:24 Dose: 12.5 mg Tiotropium [place] (Spiriva) 1 cap IH DAILY [facility] Last Admin: 02/28/17 09:25 Dose: 1 cap Tramadol HCl (Ultram) 50 mg PO Q8H PRN PRN Reason: Analgesia Last Admin: 02/26/17 12:36 Dose: 50 mg Valsartan (Diovan)/ Hydrochlorothiazide (Hydrochlorothiazide) Last Admin: 02/28/17 09:24 Dose: 25 mg 160 mg PO DAILY [facility] ALLERGIES ciprofloxacin [From Cipro] Allergy (Mild, Verified 02/22/17 21:34) Rash NEW PRESCRIPTIONS: DR. HANSEN: HYDROCODONE-ACETAMINOPHEN 5-325 MG, TAKE ONE TAB BY MOUTH EVERY 6 HOURS NEEDED FOR MODERATE PAIN DR. CARTER: ATORVASTATIN CALCIUM (LIPITOR) 40 MG, TAKE ONE TABLET BY MOUTH AT BEDTIME FENOFIBRATE (TRIGLIDE) 160 MG, TAKE ONE TABLET BY MOUTH DAILY HOSPITAL SUPPLY OF SANTYL WILL BE GIVEN TO YOU TO APPLY TO YOUR COCCYX DECUB DAILY SMOKING: SMOKING CESSATION INSTRUCTIONS/TEACHING HAVE BEEN PROVIDED THE PATIENT HAS VERBALIZED HER INTENT TO CONTINUE COMPLETE CESSATION ONCE SHE IS DISCHARGED DISEASE SPECIFIC EDUCATION: DYSLIPIDEMIA AND GOALS FOR TREATMENT FOLLOW UP HOME MEDICATIONS NEW MEDICATIONS PT/OT WOUND CARE LAB REVIEW: 02/28/17 04:25 02/28/17 04:25 02/28/17 04:25: WBC 10.21 H, RBC 3.42 L, Hgb 10.4 L, Hct 31.8 L, MCV 93.0, MCH 30.4, MCHC 32.7, RDW Coeff of Bee 14.4, Plt Count 397, Immature Gran % (Auto) 1.3, Neut % (Auto) 61.6, Lymph % (Auto) 23.7, [place] % (Auto) 9.9, Eos % (Auto) 3.0, Baso % (Auto) 0.5, Immature Gran # (Auto) 0.1, Neut # 6.3, Lymph # 2.4, [place] # 1.0, Eos # 0.3, Baso # 0.1, Sodium 140, Potassium 4.5, Chloride 108 H, Carbon Dioxide 23, Anion Gap 13.5, BUN 40 H, Creatinine 0.96, Estimated GFR ( MDRD) 57.00, BUN/Creatinine Ratio 41.66, Glucose 113, Calcium 9.4, Total Bilirubin 0.22, AST 10 L, ALT 16, Alkaline Phosphatase 85, Total Protein 6.5, Albumin 2.8 L, Globulin 3.7, Albumin/Globulin Ratio 0.76 PLAN: DISCHARGE HOME TODAY FOLLOW UP WITH DR. CARTER ON 03/09/17 AT 2:30 PM FOLLOW UP WITH DR. ORTEGA IN ONE WEEK (LAST APPOINTMENT 02/24) FOLLOW UP WITH DR. LOPEZ ON 03/01/17 AT 8AM RETURN TO [facility] FOR FASTING LAB ON 04/26/17 AT 8 AM KEEP APPOINTMENT WITH LIZZIE AGUILAR AT [facility] ON 05/02/17 AT 10:15 [id number] ([phone]) WILL DELIVER YOUR ROLLING WALKER PRIOR TO DISCHARGE RESUME YOUR HOME MEDICATIONS PER LIST PROVIDED BY THE NURSING STAFF DO NOT TAKE YOUR GEMFIBROZIL (LOPID) DO NOT TAKE YOUR CILOSTAZOL (PLETAL) DISCONTINUED AT [facility] DO NOT TAKE YOUR CO Q 10 - DISCONTINUED AT [facility] NEW PRESCRIPTIONS: DR. HANSEN: HYDROCODONE-ACETAMINOPHEN 5-325 MG, TAKE ONE TAB BY MOUTH EVERY 6 HOURS NEEDED FOR MODERATE PAIN DR. CARTER: ATORVASTATIN CALCIUM (LIPITOR) 40 MG, TAKE ONE TABLET BY MOUTH AT BEDTIME FENOFIBRATE (TRIGLIDE) 160 MG, TAKE ONE TABLET BY MOUTH DAILY HOSPITAL SUPPLY OF SANTYL WILL BE GIVEN TO YOU TO APPLY TO YOUR COCCYX DECUB DAILY ACTIVITY: GET PLENTY OF REST AT HOME. GRADUALLY INCREASE YOUR ACTIVITY ACCORDING TO YOUR TOLERATION. FOLLOW DR. LOPEZ'S DISCHARGE INSTRUCTIONS REGARDING YOUR RECENT SURGERY FOLLOW DR. ORTEGA'S INSTRUCTIONS REGARDING YOUR DECUBITUS ULCER CARE DIET: HEALTHY HEART SUMMARY: THE PATIENT IS ALERT AND ORIENTED X3. SHE CURRENTLY RESIDES AT HOME ALONE. HER DAUGHTERS ARE VERY SUPPORTIVE OF HER NEEDS WHEN NECESSARY. MS. GARZON DESIRES TO RETURN TO HER HOME AT DISCHARGE. SHE AND HER DAUGHTER HAVE DECLINED THE OFFER FOR HOME HEALTH NURSING SERVICES, WOUND CARE AND PT/OT. THEY DESIRE TO WAIT UNTIL FOLLOW UP APPOINTMENTS. [facility] WILL DELIVER A ROLLING WALKER FOR USE PRIOR TO DISCHARGE TODAY. MS. GARZON IS AGREEABLE TO COMPLY WITH PT INSTRUCTIONS TO USE THE ROLLING WALKER AT HOME FOR SAFE AMBULATION. MS. GARZON HAS A DECUBITUS ULCER TO HER COCCYX AREA. THE WOUND BED IS PINK WITH ONE AREA OF DARKNESS AT THE 7 O'CLOCK AREA. THIS AREA IS IRREGULARLY OVAL SHAPED. THE SURROUNDING TISSUE OUTSIDE THE WOUND BED IS PINK. THERE IS ONE SMALL, SLIT-LIKE OPEN AREA AT THE INTERGLUTEAL CLEFT APPROX 2-3 CMS IN LENGTH. WOUND C/S DID NOT GROW ANY ORGANISM. SHE ALSO HAS FLUID FILLED BLISTER AT THE LEFT HEAL AREA. THERE WAS A FLUID FILLED BLISTER AT THE RIGHT HEAL THAT HAS SINCE REABSORBED. THE AREA REMAINS SOFT/MUSHY. THESE THREE WOUNDS WERE PRESENT ON ADMISSION AND HAVE SHOWN IMPROVEMENT DURING THIS STAY. THE PATIENT IS SEEING DR. ORTEGA, PLASTIC SURGEON FOR THESE WOUNDS. MS. GARZON IS AWARE AND AGREEABLE FOR TODAY'S DISCHARGE. SHE HAS BEEN GIVEN FOLLOW UP APPOINTMENTS FOR HER SPECIALTY PHYSICIANS. SHE WILL ALSO FOLLOW UP WITH HER PCP SOON POSSIBLE FOLLOWING THIS DISCHARGE. BRENDEN CARTER M.D.
--- NOTE | 2017-02-28 13:24 | PN ---
DATE OF SERVICE: 02/26/17 SUBJECTIVE: The patient is a 72 year old white female hospitalized with right femoral endarterectomy done couple of weeks ago. The patient also has a decubitus ulcer that happened after a long surgery. The patient's decubitus ulcer on coccyx grade two was recently seen couple days ago by plastic surgeon and has ordered decubitus to be covered with Santyl with DuoDerm surrounding. Necrotic area in the middle seems to be superficial but if it gets denuded, the plastic surgeon may work on it so patient has followup appointment with plastic surgeon 4-5 days from now. The patient's other problem was anemia with Hgb of 8.5 with hct 24. Considering patient's vascular surgery and decline in her function with weakness, 1 unit of packed red cells was given yesterday and the patient's hgb is 10.6 with hct of 32. The patient's rest of the CMP is negative, normal. This morning the patient is feeling a lot better. She is up and about in better mood. REVIEW OF SYSTEMS: CONSTITUTIONAL: No night sweats. No fatigue, malaise, lethargy. No fever or chills. HEENT: Eyes: No visual changes. No eye pain. No eye discharge. ENT: No runny nose. No epistaxis. No sinus pain. No sore throat. No odynophagia. No congestion. RESPIRATORY: No cough, no congestion. No hemoptysis. CARDIOVASCULAR: No angina symptoms. No CHF symptoms. No atypical chest pain for CAD. No palpitations. No shortness of breath. GASTROINTESTINAL: No abdominal pain. No nausea or vomiting. No diarrhea or constipation. No hematemesis. No hematochezia. GENITOURINARY: No urgency. No frequency. No dysuria. No hematuria. No obstructive symptoms. No discharge. No pain. No significant abnormal bleeding. MUSCULOSKELETAL: No musculoskeletal pain; no joint swelling. NEUROLOGICAL: No headache. No neck pain. No syncope. No seizures. No dizziness. PSYCHIATRIC: Not anxious. No depression. No suicidal thoughts. No homicidal thoughts. SKIN: No rash. No lesions. No wounds. ENDOCRINE: No unexplained weight loss. No weight gain. HEMATOLOGIC/LYMPHATIC: No anemia. No purpura. No petechiae. No prolonged or excessive bleeding. No palpable lymph nodes. PHYSICAL EXAMINATION: GENERAL: The patient is oriented to time, place and person. VITAL SIGNS: Temperature 97.8, pulse 78, respiratory rate 16, blood pressure 120/70 and pulse ox 97%. HEENT: Head normocephalic, atraumatic. Eyes: Extraocular muscles are intact. Pupils are equal, round and reactive to light and accommodation. Ears: No lesions. Nose appeared normal. Throat: No exudate or erythema. NECK: Supple. No JVD, Left carotid bruit. No lymphadenopathy or thyromegaly. LUNGS: Clear to auscultation. Percussion note normal. Chest symmetrical. HEART: S1, S2, no S3. Grade I/ systolic murmur. No cyanosis or clubbing. No ascites. Pulses: Dorsalis pedis and posterior tibial pulses +1 to +2 both sides. ABDOMEN: Soft. Nontender. Bowel sounds active. No CVA tenderness. No mass felt. EXTREMITIES: No edema. Full range of motion of all extremities, equal. NEUROLOGIC: No focal deficit. Cranial nerves II through XII are grossly intact. No headache, no double vision or headache. SKIN: Not dry. Intact. Turgor - normal. LYMPHATIC: No palpable lymph nodes/no lymphedema. MUSCULOSKELETAL: Normal joints with no swelling. Muscle tone is normal. ASSESSMENT: 1. Right femoral endarterectomy 2. Right tibial artery endarterectomy, recovering very well. The temperature of the right lower extremity and left lower extremity is normal. 3. The decubitus care is being taken care of by protocol 4. Anemia, stable 5. Cardiovascular status is stable 6. The patient has left carotid artery stenosis which is approximately 60-70% PLAN: 1. Continue the same treatment. 2. Up and about 3. Physical therapy 4. Nutrition CONDITION: Stable. TIME SPENT: More than 30 minutes. Plan and coordination of the patient's care discussed in the presence of nurse. SONG
--- NOTE | 2017-03-01 14:09 | PN ---
DATE OF SERVICE: 02/28/17 SUBJECTIVE: The patient is a 72 year old white female hospitalized with right femoral endarterectomy. The patient developed decubitus ulcers under going surgery which was 5 hours long. The patients decubitus ulcers in the heel have practically healed up. The one on the coccygeal area is healing up beautifully. It is almost grade 1-grade 2. It is being followed by a plastic surgeon. The patient is going to see the plastic surgeon on the coming and that is three days from now. Today the patient went to see vascular surgeon but her appointment was cancelled so they are supposed to go see the vascular surgeon tomorrow. REVIEW OF SYSTEMS: CONSTITUTIONAL: No night sweats. No fatigue, malaise, lethargy. No fever or chills. HEENT: Eyes: No visual changes. No eye pain. No eye discharge. ENT: No runny nose. No epistaxis. No sinus pain. No sore throat. No odynophagia. No congestion. RESPIRATORY: No cough, no congestion. No hemoptysis. CARDIOVASCULAR: No angina symptoms. No CHF symptoms. No atypical chest pain for CAD. No palpitations. No shortness of breath. GASTROINTESTINAL: No abdominal pain. No nausea or vomiting. No diarrhea or constipation. No hematemesis. No hematochezia. GENITOURINARY: No urgency. No frequency. No dysuria. No hematuria. No obstructive symptoms. No discharge. No pain. No significant abnormal bleeding. MUSCULOSKELETAL: No musculoskeletal pain; no joint swelling. NEUROLOGICAL: No headache. No neck pain. No syncope. No seizures. No dizziness. PSYCHIATRIC: Not anxious. No depression. No suicidal thoughts. No homicidal thoughts. SKIN: No rash. No lesions. No wounds. ENDOCRINE: No unexplained weight loss. No weight gain. HEMATOLOGIC/LYMPHATIC: No anemia. No purpura. No petechiae. No prolonged or excessive bleeding. No palpable lymph nodes. PHYSICAL EXAMINATION: GENERAL: The patient is oriented to time, place and person. VITAL SIGNS: Temperature 98, pulse 67, respiratory rate 16, blood pressure 127/ 62 and pulse ox 99%. HEENT: Head normocephalic, atraumatic. Eyes: Extraocular muscles are intact. Pupils are equal, round and reactive to light and accommodation. Ears: No lesions. Nose appeared normal. Throat: No exudate or erythema. NECK: Supple. No JVD, Left carotid bruit. No lymphadenopathy or thyromegaly. LUNGS: Decreased breath sounds but clear to auscultation. Percussion note normal. Chest symmetrical. HEART: S1, S2, no S3. No murmurs. No cyanosis or clubbing. No ascites. Pulses: Dorsalis pedis and posterior tibial pulses +1 to +2 both sides. ABDOMEN: Soft. Nontender. Bowel sounds active. No CVA tenderness. No mass felt. EXTREMITIES: No edema. Full range of motion of all extremities, equal. NEUROLOGIC: No focal deficit. Cranial nerves II through XII are grossly intact. No headache, no double vision or headache. SKIN: Not dry. Intact. Turgor - normal. LYMPHATIC: No palpable lymph nodes/no lymphedema. MUSCULOSKELETAL: Normal joints with no swelling. Muscle tone is normal. LABS: Hgb 10.4, hct 31, WBC 10,000 normal differential, creatinine 0.9, BUN 40, potassium 4.5, T4 TSH normal. ASSESSMENT: 1. Right femoral endarterectomy 2. Carotid occlusive disease 3. Hypertension 4. Dyslipidemia 5. Decubitus ulcer on the coccygeal area followed by plastic surgeon. PLAN: 1. Continue followup withe the vascular surgeon 2. Followup with the plastic surgeon for the decubitus ulcer 3. Keep taking Lipitor and TriCor 4. Left carotid bruit will be further investigated very likely the vascular surgeon knows about it, send him the copy. CONDITION: Stable. TIME SPENT: More than 30 minutes. Plan and coordination of the patient's care discussed in the presence of nurse. SONG
--- NOTE | 2017-03-01 14:52 | DS ---
DATE OF SERVICE: 02/28/17 FINAL DIAGNOSIS: 1. Gait disturbance 2. Right femoral endarterectomy by Dr. Burgos at [facility] 3. Decubitus ulcers, coccyx and both heels (present on admission) 4. Anemia (received one unit PRBC's 02/25/17) 5. Carotid Occlusive disease (moderate, left ICA-Carotid studies 02/23/17) 6. Peripheral arterial disease 7. Hypertension 8. Dyslipidemia 9. COPD (Current smoker) 10. Hypothyroidism 11. History of diverticulitis 12. GERD 13. Fibromyalgia 14. Status post Bilateral knee arthroplasty 15. Appendectomy 16. Hysterectomy LAST VITALS: Temperature 98, pulse 67, respiratory rate 16, blood pressure 127/62 and pulse ox 99%. DISCHARGE INSTRUCTIONS: Discharge home today. Followup with Dr. Stacy on 03/09/17 at 2:30pm, Followup with Dr. Fisher in one week (last appointment 02/24), Followup with Dr. Burgos on 03/01/17 at 8am. Return to [facility] for fasting lab on 04/26/17 at 8am. Keep appointment with LIZZIE Sorto at [facility] on 05/02/17 at 10: 15. [facility] will deliver rolling walker prior to discharge. Resume home medication as per list provided by the nursing staff. Do not take Lopid, Pletal discontinued at [place], [place] Q 10 discontinued at [place]. MEDICATIONS AT DISCHARGE: Tylenol 650mg PO Q 4 hours PRN [place] 5-325 PO Q 6 hours PRN DUONEBS four times a day Vitamin C 500mg PO twice a day Lipitor 40mg PO bedtime Klonopin 0.5mg PO bedtime Plavix 75mg PO daily Santyl one application TP daily Colace 100mg PO twice a day Triglide 160mg PO daily Synthroid 150mch PO QDAC Lopressor 12.5mg PO twice a day Spiriva IH daily Ultram 50mg PO Q 8 hours PRN Hydrochlorothiazide 25mg PO daily ALLERGIES: Ciprofloxacin NEW PRESCRIPTIONS: Dr Burgos: Hydrocodone-Acetaminophen 5-325mg take one tablet by mouth every 6 hours as needed for moderate pain Dr. Stacy Lipitor 40mg take one tablet by mouth at bedtime Triglide 160mg take one tablet by mouth daily Hospital supply of Santyl will be given to apply to coccyx decubitus daily DIET INSTRUCTIONS: Healthy heart. ACTIVITY: Get plenty of rest at home. Gradually increase activity according to toleration. Follow Dr. Cordoba discharge instructions regarding recent surgery. Follow Dr. Fisher's instructions regarding decubitus ulcer care. SMOKING: Smoking cessation instructions/teaching have been provided. The patient has verbalized intent to continue complete cessation once she is discharged. DISEASE SPECIFIC EDUCATION: Dyslipidemia and goals for treatment Followup Home medications New medications PT/OT Wound Care HOSPITAL COURSE: The patient is a 72 year old white female hospitalized after right femoral endarterectomy and also had surgery on the right tibial artery. The patient during the surgery developed decubitus ulcer, it was a long surgery. The patient 's decubitus ulcer on the coccygeal area is healing up good, followed by plastic surgeon. The patient's incision is healing good. No evidence of infection. The patient is up and about and required one unit of packed red cells. There is no evidence of active GI bleed the patient is up and about on her own. The daughter was present on the day of discharge. The patient's cardiovascular status is stable. The patient was put on Lipitor and also TriCor. The Lopid was discontinued and the patient's total cholesterol was 245 with triglycerides of more than 300. She was explained about the findings and Lopid was discontinued considering the patient's dyslipidemia and the extent of it and having vascular surgery that was definitely a need to be Statin along with fenofibrate. Side effects of Lipitor and Fenofibrate discussed, like Rhabdomyolysis with symptoms and what to do. Also discussed about myalgia along with it with muscle weakness and liver enzymes weakness. The patient will undergo further testing of her lipid profile and liver profile as an outpatient. CONDITION: Stable. TIME SPENT: More than 60 minutes. MTDD
== END 2017-02-28 14:04 | disposition home or self-care (01) | DRG 950 ==
LOC: UNDOADMIN 15:05 → MEDSURG B 15:05 → UNDOADMIN 02-23 08:41
PROVIDERS: ADMIT Internal Medicine; ATTEND Internal Medicine
PROC: 30233N1 Transfusion of Nonautologous Red Blood Cells into Peripheral Vein, Percutaneous Approach (ICD-10-PCS; principal; 2017-02-25)
DX: Z48.812 Encounter for surgical aftercare following surgery on the circulatory system (principal); R26.9 Unspecified abnormalities of gait and mobility; Z98.62 Peripheral vascular angioplasty status; R09.89 Other specified symptoms and signs involving the circulatory and respiratory systems; I65.22 Occlusion and stenosis of left carotid artery; L89.152 Pressure ulcer of sacral region, stage 2; L89.621 Pressure ulcer of left heel, stage 1; L89.611 Pressure ulcer of right heel, stage 1; D64.9 Anemia, unspecified; I10 Essential (primary) hypertension; I73.9 Peripheral vascular disease, unspecified; E78.5 Hyperlipidemia, unspecified; J44.9 Chronic obstructive pulmonary disease, unspecified; E03.9 Hypothyroidism, unspecified; K21.9 Gastro-esophageal reflux disease without esophagitis; M79.7 Fibromyalgia; F17.200 Nicotine dependence, unspecified, uncomplicated; Z87.19 Personal history of other diseases of the digestive system; Z79.01 Long term (current) use of anticoagulants; Z79.899 Other long term (current) drug therapy
CPT/HCPCS: 36415; 36430; 80053; 80061; 84439; 84443; 85014; 85018; 85025; 86850; 86900; 86922; 87070; 87081; 87086; 93005; 93010; 94640; 97802